=== PATIENT | male | born 1975 | race Caucasian/White ===

== ENCOUNTER 2022-08-03 10:33 | Emergency (ER) | payer OTHER ==
[~2022-08-03] VITALS: Ht 172.7 cm; Wt 118.2 kg
[2022-08-03 10:34] VITALS: BP 147/97
[2022-08-03] MEDS ORDERED: ketorolac trometh inj. 60 MG/2 ML VIAL IM ONE (12:00)
[2022-08-03] MEDS ORDERED: orphenadrine citrate 60mg/2ml inj. IM ONE (12:00)
[2022-08-03] MEDS ORDERED: HYDROcodone/acetaminophen 10/325mg tab PO ONE (13:25)
[2022-08-03] MEDS ORDERED: IBUP-1986 PO (13:44)
[2022-08-03] MEDS ORDERED: HYDR-3973 PO (13:44)
[2022-08-03] MEDS ORDERED: CYCL-1 PO (13:44)
== END 2022-08-03 13:53 | disposition home or self-care (01) ==
LOC: ER 10:33
DX: M54.59 Other low back pain (principal)
CPT/HCPCS: 72100; 96372; 99284; J1885; J2360

== ENCOUNTER 2022-08-11 08:01 | Emergency (ER) | payer OTHER ==
[~2022-08-11] VITALS: Ht 172.7 cm; Wt 126.6 kg
[~2022-08-11 08:01] MED LIST: CYCL-1 PO; IBUP-1986 PO
[2022-08-11 08:12] VITALS: BP 140/102
[2022-08-11] MEDS ORDERED: HYDR-3973 PO (08:47)
== END 2022-08-11 09:29 | disposition home or self-care (01) ==
LOC: ER 08:01
DX: M54.59 Other low back pain (principal); Z79.899 Other long term (current) drug therapy
CPT/HCPCS: 99284